=== PATIENT | female | born 1990 | race African-American/Black ===

== ENCOUNTER 2024-05-12 02:35 | Emergency (ER) | payer OTHER ==
[2024-05-12] MEDS ORDERED: Ibuprofen 200 MG TAB ONE (02:56)
== END 2024-05-12 03:02 | disposition home or self-care (01) ==
LOC: CSHERS 02:35
DX: M79.672 Pain in left foot (principal); F17.210 Nicotine dependence, cigarettes, uncomplicated
CPT/HCPCS: 99282